=== PATIENT | male | born 1990 | race African-American/Black ===

== ENCOUNTER 2020-05-27 14:23 | Outpatient (CLI) | payer OTHER ==
--- NOTE | 2020-05-27 15:29 | RAD ---
XR Shoulder Lt 3 View STANDARD: 05/27/2020 12:00 AM CLINICAL INDICATION: Left shoulder pain. COMPARISON: None. FINDINGS: Bones: No acute fracture. Glenohumeral joint: Normal alignment. AC joint: Normal alignment. Visualized lung: Clear. Soft tissues: Within normal limits. IMPRESSION: No acute osseous abnormality.
--- NOTE | 2020-05-27 15:30 | RAD ---
LUMBAR SPINE 2 VIEWS: Date: 05/27/2020 HISTORY: Lumbago with sciatica, right side. FINDINGS/IMPRESSION: No fracture, subluxation, or bony destruction is seen. POS: OFF
--- NOTE | 2020-05-27 15:31 | RAD ---
CERVICAL SPINE 4 VIEWS: Date: 05/27/2020 HISTORY: Paresthesia of left arm. FINDINGS/IMPRESSION: No fracture, subluxation, or bony destruction is seen. POS: OFF
== END 2020-05-27 14:24 | disposition home or self-care (01) ==
LOC: BICRAD 14:23
PROVIDERS: ATTEND Physician Assistant
DX: M25.512 Pain in left shoulder (principal); R20.2 Paresthesia of skin; M54.41 Lumbago with sciatica, right side
CPT/HCPCS: 72040; 72100

== ENCOUNTER 2021-04-03 14:28 | Outpatient (CLI) | payer OTHER | END 2021-04-03 14:29 | disposition home or self-care (01) | LOC: BICRAD 14:28 | PROVIDERS: ATTEND Family Medicine | DX: M25.572 Pain in left ankle and joints of left foot (principal); M79.672 Pain in left foot; M25.561 Pain in right knee; M79.605 Pain in left leg ==

== ENCOUNTER 2021-12-10 21:19 | Emergency (ER) | payer OTHER ==
[2021-12-10 22:03] LABS: #Lymphocytes 2.4 thou/uL (1.20-3.40); #Monocytes 0.7 thou/uL (0.11-0.59); #Neutrophils 2.5 thou/uL (1.40-6.50); %Basophils 0.8 % (0.0-1.0); %Eosinophils 0.4 % (0.0-10.0); %Lymphocytes 42.3 % (21.0-51.0); %Monocytes 12.7 % (0.0-10.0); %Neutrophils 43.8 % (42.0-75.0); Hemoglobin 13.5 g/dL (14.0-18.0); Mean Corpuscular HGB CONC 34.5 g/dL (32.0-36.0); Mean Corpuscular Hemoglobin 31.4 pg (27.0-31.0); Mean Corpuscular Volume 91.2 fL (78.0-98.0); Mean Platelet Volume 6.1 fL (7.4-10.4); Platelet Count 207 thou/uL (130-400); RBC Distribution Width 11.1 % (11.5-14.5); Red Blood Cell (RBC) Count 4.29 mill/uL (4.70-6.10); White Blood Cell (WBC) Count 5.6 thou/uL (4.8-10.8)
[2021-12-10 22:23] LABS: ALT (SGPT) 38 U/L (8-55); AST (SGOT) 22 U/L (5-34); Albumin 4.3 g/dL (3.5-5.0); Alkaline Phosphatase 49 U/L (40-110); Anion Gap 8 mmol/L (10-20); BUN (Urea Nitrogen) 16 mg/dL (8.9-20.6); Bilirubin, Total 0.4 mg/dL (0.2-1.2); Calc. Creatinine Clearance 0 mL/min (70-130); Calcium 9.5 mg/dL (7.8-10.44); Carbon Dioxide 33 mmol/L (22-29); Chloride 99 mmol/L (98-107); Globulin 3.3 g/dL (2.4-3.5); Glucose 103 mg/dL (70-105); Lipase 30 U/L (8-78); Potassium 4.3 mmol/L (3.5-5.1); Protein, Total 7.6 g/dL (6.0-8.3); Sodium 136 mmol/L (136-145)
[2021-12-10] MEDS ORDERED: Ketorolac Tromethamine 30 MG/ML VIAL ONE (22:43)
[2021-12-11] MEDS ORDERED: Famotidine/PF 20 mg/2ml Vial ONE (00:06)
[2021-12-11] MEDS ORDERED: Iopamidol 370 76% 100 ML VIAL ONE (10:57)
== END 2021-12-11 01:11 | disposition home or self-care (01) ==
LOC: ERS 21:19
DX: R10.13 Epigastric pain (principal); I10 Essential (primary) hypertension; F17.210 Nicotine dependence, cigarettes, uncomplicated
CPT/HCPCS: 36415; 74177; 80053; 83690; 85025; 96374; 96375; J1885; Q9967; S0028

== ENCOUNTER 2022-07-13 09:57 | Outpatient (CLI) | payer OTHER | END 2022-07-13 09:58 | disposition home or self-care (01) | LOC: BICRAD 09:57 | PROVIDERS: ATTEND Family Medicine | DX: M54.41 Lumbago with sciatica, right side (principal); M25.512 Pain in left shoulder | CPT/HCPCS: 72100 ==

== ENCOUNTER 2022-12-07 07:47 | Outpatient (CLI) | payer OTHER | END 2022-12-07 07:48 | disposition home or self-care (01) | LOC: SCSMRI 07:47 | PROVIDERS: ATTEND Orthopaedic Surgery | DX: M47.22 Other spondylosis with radiculopathy, cervical region (principal); M25.519 Pain in unspecified shoulder; M54.9 Dorsalgia, unspecified; M25.569 Pain in unspecified knee; M50.122 Cervical disc disorder at C5-C6 level with radiculopathy | CPT/HCPCS: 72141 ==

== ENCOUNTER 2022-12-29 08:47 | Outpatient (CLI) | payer OTHER | END 2022-12-29 08:48 | disposition home or self-care (01) | LOC: SCSMRI 08:47 | PROVIDERS: ATTEND Family Medicine | DX: M25.561 Pain in right knee (principal); R60.0 Localized edema; M67.461 Ganglion, right knee ==

== ENCOUNTER 2023-01-15 12:45 | Outpatient (CLI) | payer OTHER | END 2023-01-15 12:46 | disposition home or self-care (01) | LOC: SCSMRI 12:45 | PROVIDERS: ATTEND Family Medicine | DX: M54.41 Lumbago with sciatica, right side (principal); M51.37 Other intervertebral disc degeneration, lumbosacral region; Q05.7 Lumbar spina bifida without hydrocephalus | CPT/HCPCS: 72158 ==